=== PATIENT | female | born 1965 | race Caucasian/White ===

== ENCOUNTER 2018-08-08 17:44 | Inpatient (IN) | payer OTHER ==
[~2018-08-08] VITALS: Ht 167.6 cm; Wt 95.3 kg
[~2018-08-08 17:44] MED LIST: DAFLONEX 600 MG1 TAB PO
[2018-08-08] MEDS ORDERED: XARELTO20 MG (19:04)
[2018-08-08] MEDS ORDERED: ALEVE220 M1 (19:05)
[2018-08-13] MEDS ORDERED: XARELTO20 MG PO (13:31)
[2018-08-13] MEDS ORDERED: CYMBALTA30 MG PO (13:32)
== END 2018-08-13 15:32 | disposition home or self-care (01) | DRG 603 ==
LOC: MEDJ 17:44
PROC: B54DZZZ Ultrasonography of Bilateral Lower Extremity Veins (ICD-10-PCS; principal; 2018-08-11)
DX: L03.116 Cellulitis of left lower limb (principal); E72.12 Methylenetetrahydrofolate reductase deficiency; D68.69 Other thrombophilia; I87.2 Venous insufficiency (chronic) (peripheral); M79.662 Pain in left lower leg